=== PATIENT | female | born 1945 | race Caucasian/White ===

== ENCOUNTER 2016-06-05 05:14 | Day surgery (SDC) | payer MEDICARE, OTHER ==
[2016-06-03 16:41] LABS: BASOPHILS 0.5 % (0.0-2.0); EOSINOPHILS 1.6 % (0-7); HEMATOCRIT 37.6 % (36.0-48.0); HEMOGLOBIN 12.8 g/dL (12-16); IMMATURE GRANULOCYTES 0.2 % (0-5); LYMPHOCYTES 27.7 % (15-50); MCH 31.8 pg (26.0-34.0); MCV 93.5 fL (80.0-100.0); MEAN PLATELET VOLUME 10.5 fL (7.4-10.4); MONOCYTES 12.8 % (2-11); NEUTROPHILS 57.2 % (40-80); PLATELET COUNT 238 10x3/uL (130-400); RBC 4.02 10x6/uL (4.00-5.40); WBC 8.6 10x3/uL (4.8-10.8)
[2016-06-03 16:59] LABS: ANION GAP 11.1 mmol/L (8-16); CALCIUM 9.6 mg/dL (8.5-10.1); CARBON DIOXIDE 29.6 mmol/L (21.0-32.0); CREATININE - SERUM 0.9 mg/dL (0.6-1.3); POTASSIUM - SERUM 3.7 mmol/L (3.5-5.1)
[~2016-06-05] VITALS: Ht 162.6 cm; Wt 59.4 kg
[~2016-06-05 05:14] MED LIST: ASPIRIN EC81 M1 PO; DYAZIDE 37.5/251 CAP PO; TIROSINT88 MCG PO; VITAMIN B-121000 MCG PO
[2016-06-05] MEDS ORDERED: TIROSINT25 MCG PO (08:48)
[2016-06-05 08:52] VITALS: BP 151/67; Ht 162.6 cm; Wt 59.4 kg
--- NOTE | 2016-06-05 14:20 | HP ---
PATIENT: KERLINE UREÑA MEDICAL RECORD: [id number] ACCOUNT: [id number] LOCATION:LIEN : 45 ADMISSION DATE: 06/05/16 HISTORY AND PHYSICAL EXAMINATION HISTORY OF PRESENT ILLNESS: This patient is a 71-year-old 2, para 2 white female with postmenopausal bleeding. She has a negative in-office biopsy; however, she has a strong family history of uterine cancer and specimen was minimal in amount. She is scheduled for examination under anesthesia, endocervical curettage, hysteroscopy with endometrial biopsies and a thorough endometrial curettage. Her ultrasound revealed an 8.43 cm uterine length, anteverted uterus and endometrium varying from 0.26 to 0.32 with fluid. There were multiple calcified fibroids. MEDICAL HISTORY: Postmenopausal bleeding. REVIEW OF SYSTEMS: Negative. The patient takes aspirin, estrogen, thyroid hormone vitamins and Prometrium. FAMILY HISTORY: Positive for colon cancer, uterine cancer, diabetes, heart disease, fractures, and osteoporosis. SOCIAL HISTORY: The patient is , former smoker. No ethanol use. PHYSICAL EXAMINATION: VITAL SIGNS: Weight is 131 pounds, blood pressure 150/70. HEENT: Grossly unremarkable. LUNGS: Clear. HEART: Regular rate and rhythm. ABDOMEN: Soft and nontender. PELVIC: Examination is current and deferred for anesthesia. EXTREMITIES: No cyanosis, clubbing or edema. IMPRESSION: Postmenopausal bleeding, strong family history of uterine cancer. Negative endometrial biopsy with small specimen. PLAN: Hysteroscopy with appropriate biopsies in the cervical, endometrial and a thorough curettage in a.m. I have discussed the above plan with the patient and answered all her questions. Further discussed risks of procedure including anesthesia, infection, bleeding and injury to other organs. All questions answered. TRANSINT:[id number] Voice Confirmation ID: [id number] DOCUMENT ID: [id number] OTONIEL VEE MD at 1420 CC: [id number] DICTATION DATE: 06/04/16 1317 FIXTURE MAKER: 06/04/16 1347 [facility] [address] [place] [address]
--- NOTE | 2016-06-05 16:35 | NUR ---
VOIDED WITHOUT DIFFICULTY. DISCHARGE INSTRUCTIONS AND RX FOR PERCOCET GIVEN. DISCHARGED HOME VIA WC.
--- NOTE | 2016-06-11 16:56 | OP ---
PATIENT NAME: KERLINE UREÑA MEDICAL RECORD: [id number] :45 LOCATION:LIEN ADMISSION DATE: SURGEON: BRENDA VEE MD DATE OF OPERATION: 06/05/2016 PREOPERATIVE DIAGNOSIS: Postmenopausal bleeding. POSTOPERATIVE DIAGNOSIS: Postmenopausal bleeding. PROCEDURES: Hysteroscopy, endocervical curettage, endometrial biopsies, and endometrial curettage. SURGEON: Brenda Vee MD ANESTHESIA: General. FINDINGS: An 8-cm endometrial cavity with benign appearance, minimal irregularities of the posterior wall of the endometrium. ESTIMATED BLOOD LOSS: Minimal. COMPLICATIONS: None. OPERATIVE NOTE: The patient was taken to the OR and under adequate general anesthesia, prepped and draped in the usual manner for vaginal procedures with legs in floating boot Danilo stirrups. The anterior lip of the cervix was grasped with tenaculum. The endometrial cavity sounded to approximately 8 cm in depth. Endocervical curettage was performed. Cervix was dilated to accept the hysteroscope and hysteroscopic evaluation revealed the above listed findings. Biopsies were taken randomly and the minimal irregularity on the posterior wall. The hysteroscope was then removed and a thorough endometrial curettage was performed and sent as a separate specimen. At the end of procedure, all instruments were removed and the patient went to the recovery area in good condition. TRANSINT:[id number] Voice Confirmation ID: [id number] DOCUMENT ID: [id number] BRENDA VEE MD at 1656 CC: [id number] DICTATION DATE: 06/05/16 1426 PRINCIPAL ACCOUNTS CLERK: 06/05/16 1456 [facility] 06/05/16 [place] [id number]
== END 2016-06-05 16:35 | disposition home or self-care (01) ==
LOC: D.OPS 05:14 → D.PAN 11:00 → D.OPS 16:35
PROVIDERS: Anesthesiology; Obstetrics & Gynecology
DX: N85.8 Other specified noninflammatory disorders of uterus (principal); Z79.82 Long term (current) use of aspirin; Z79.890 Hormone replacement therapy; Z79.899 Other long term (current) drug therapy; Z80.8 Family history of malignant neoplasm of other organs or systems; Z87.891 Personal history of nicotine dependence